=== PATIENT | female | born 1975 | race Hispanic/Latino ===

== ENCOUNTER 2024-12-22 13:44 | Inpatient (IN) | payer BC ==
[~2024-12-22] VITALS: Ht 157.5 cm; Wt 59.1 kg
[2024-12-22 14:21] LABS: ADD UA MICROSCOPIC YES; APPEARANCE,URINE HAZY (CLEAR); GLUCOSE, URINE (UA) NEGATIVE (NEGATIVE); LEUKOCYTE ESTERASE ,URINE 500 Leu/uL (NEGATIVE); NITRATE,URINE 2+ (NEGATIVE); OCCULT BLOOD,URINE NEGATIVE (NEGATIVE)
[2024-12-22 14:24] LABS: SQUAMOUS EPITHELIAL CELL,UR MANY /HPF (0-2)
[2024-12-22] MEDS: 0.9%NACL 1000ML 1,000 ML IV ONE (14:31)
[2024-12-22 14:45] LABS: IMMATURE GRANULOCYTE ABSOLUTE 0.01 K/uL (0-1); NUCLEATED RED BLOOD CELLS 0.0 % (0.0-0.19); PLATELET COUNT (AUTO) 215 K/uL (130-400); RED BLOOD CELL COUNT(AUTO) 3.63 MIL/uL (4.00-5.50); RED CELL DISTRIBUTION WIDTH 13.3 % (11.0-15.5); WHITE BLOOD COUNT (AUTO) 4.9 K/uL (4.8-10.8)
[2024-12-22 14:56] LABS: ASPARTATE AMINOTRANSFERASE 19.0 U/L (10-37); CREATININE 0.7 mg/dL (0.5-1.0); GLOMERULAR FILTR. RATE CALC 106.0 mL/min (>90); GLUCOSE,RANDOM 82.0 mg/dL (70-105); SODIUM SERUM 123.0 mmol/L (136-145); TOTAL PROTEIN, SERUM 7.0 g/dL (6.0-8.3); UREA NITROGEN, BLOOD 7.0 mg/dL (7-18)
--- NOTE | 2024-12-22 15:08 | HMCIMG ---
EXAM: CT Abdomen and Pelvis Without IV contrast CLINICAL HISTORY: left flank pain TECHNIQUE: Axial computed tomography images of the abdomen and pelvis without intravenous contrast. CONTRAST: No IV contrast. COMPARISON: None provided. FINDINGS: LUNG BASES: The lung bases appear clear. No pleural effusions are seen. LIVER: Unremarkable. GALLBLADDER AND BILE DUCTS: Distended gallbladder. No calcified gallstones. If indicated, further evaluation with ultrasound can be performed. PANCREAS: Unremarkable. SPLEEN: Unremarkable. ADRENAL GLANDS: Unremarkable. KIDNEYS, URETERS, AND BLADDER: No renal or ureteral stones. No hydronephrosis. STOMACH AND BOWEL: No bowel obstruction or inflammation. Large amount of stool in the colon, consistent with constipation. APPENDIX: Appendix not identified, but there are no findings to suggest appendicitis. PERITONEUM: No free fluid. No free air. LYMPH NODES: No lymphadenopathy is evident. REPRODUCTIVE: Unremarkable as visualized. VASCULATURE: No evidence of abdominal aortic aneurysm. BONES: No aggressive appearing osseous lesion. No acute osseous pathology evident. IMPRESSION: 1. Distended gallbladder. No calcified gallstones. If indicated, further evaluation with ultrasound can be performed. 2. No bowel obstruction or inflammation. Large amount of stool in the colon, consistent with constipation. 3. Appendix not identified, but there are no findings to suggest appendicitis. 4. No renal or ureteral stones. No hydronephrosis. /[place]
--- NOTE | 2024-12-22 17:03 | ERN ---
ED Note History of Present Illness Stated Complaint: BACK PAIN Chief Complaint: Flank Pain Time Seen by MD: 13:47 Dictation: 49-year-old female presenting to the emergency department with left-sided flank pain and pain with urination generalized weakness over the past few days no fever no chest pain but also reports generalized weakness Allergies: Coded Allergies: No Known Drug Allergies (Unverified Allergy, Unknown, 12/22/24) Past Medical History Past Medical History: No Pertinent History Surgical History: Review of System Dictation Constitutional: Negative for fever,chills, and weight loss Eyes: Negative for injury, pain,redness, and discharge ENT: Negative for injury,pain or swelling Cardiovascular: Negative for chest pain, palpitations, and edema Respiratory: Negative for shortness of breath, cough, and wheezing, Abdomen/GI: Negative for abdominal pain, nausea, vomiting, diarrhea, and constipation Back: Per HPI Skin: Negative for rash, and discoloration Neuro: Negative for headache, weakness, numbness, tingling, and seizure Psych: Negative for suicide ideation, homicidal ideation, and hallucinations Initial Vital Sign VS Vital Signs Date Time Temp Pulse Resp B/P (MAP) Pulse Ox O2 Delivery O2 Flow Rate FiO2 12/22/24 13:50 98.8 74 18 116/72 98 0 12/22/24 14:12 Room Air* 21 Physical Exam Dictation General: awake, alert, appears dehydrated Head/Face: Normocephalic, atraumatic Eyes: PERRL, EOMI, vision at baseline ENT: oral cavity clear, TMs clear, no signs of infection Neck: Trachea midline, supple, no nuchal rigidity Cardiovascular: RRR, normal S1/S2, No MRGs, no JVD Respiratory: CTAB, no respiratory distress, No rales or wheezes Abdomen: Soft, non-tender, non-distended, normal bowel sounds, no guarding or rebound. Skin: Warm, dry, normal turgor, no rash MS/Extremity: Pulses equal, no cyanosis, neurovascular intact, FROM Neuro: COAx4, GCS 15, strength 5/5, CN 2-12 intact, normal cerebellar exam, normal gait, Psych: Normal behavior, mood, and affect normal Results (Laboratory/Radiology) Laboratory/Radiology Laboratory Tests Test 12/22/24 14:00 12/22/24 14:18 Urine Color DARK-YELLOW (YELLOW) Urine Appearance HAZY (CLEAR) Urine pH 7.5 (5.0-8.0) Urine Specific [place] 1.010 (1.001-1.031) Urine Protein NEGATIVE mg/dL (NEGATIVE) Urine Glucose (UA) NEGATIVE mg/dL (NEGATIVE) Urine Ketones NEGATIVE mg/dL (NEGATIVE) Urine Occult Blood NEGATIVE (NEGATIVE) Urine Nitrate 2+ (NEGATIVE) H Urine Bilirubin 1 mg/dL (NEGATIVE) H Urine Urobilinogen 3 mg/dL (0.2-1.0) H Urine Leukocyte Esterase 500 Mae/uL (NEGATIVE) H Urine RBC 2-5 /HPF (0-1) H Urine WBC >100 /HPF (0-1) H Urine Squamous Epithelial Cells MANY /HPF (0-2) Urine Bacteria MOD /HPF (None Seen) Urine HCG, Qualitative NEGATIVE (NEGATIVE) White Blood Count 4.9 K/uL (4.8-10.8) Red Blood Count 3.63 MIL/uL (4.00-5.50) L Hemoglobin 10.7 g/dL (12.0-16.0) L Hematocrit 30.8 % (36-48) L Mean Corpuscular Volume 84.8 fL (79-99) Mean Corpuscular Hemoglobin 29.5 pg (27.0-33.0) Mean Corpuscular Hemoglobin Concent 34.7 g/dL (32.0-36.0) Red Cell Distribution Width 13.3 % (11.0-15.5) Platelet Count 215 K/uL (130-400) Mean Platelet Volume 11.3 fL (7.5-10.5) H Immature Granulocyte % (Auto) 0.2 % (0-1) Neutrophils (%) (Auto) 67.4 % (40.0-77.0) Lymphocytes (%) (Auto) 21.6 % (21.0-51.0) Monocytes (%) (Auto) 8.8 % (3.0-13.0) Eosinophils (%) (Auto) 1.4 % (0.0-8.0) Basophils (%) (Auto) 0.6 % (0.0-5.0) Neutrophils # (Auto) 3.3 K/uL (1.8-7.7) Lymphocytes # (Auto) 1.1 K/uL (1.0-4.8) Monocytes # (Auto) 0.4 K/uL (0.1-1.0) Eosinophils # (Auto) 0.07 K/uL (0.00-0.70) Basophils # (Auto) 0.03 K/uL (0.00-0.20) Absolute Immature Granulocyte (auto 0.01 K/uL (0-1) Nucleated Red Blood Cells 0.0 % (0.0-0.19) Sodium Level 123 mmol/L (136-145) L Potassium Level 4.1 mmol/L (3.5-5.1) Chloride Level 88 mmol/L (101-111) *L Carbon Dioxide Level 29 mmol/L (21-32) Blood Urea Nitrogen 7 mg/dL (7-18) Creatinine 0.7 mg/dL (0.5-1.0) Glomerular Filtration Rate Calc 106 mL/min (>90) Random Glucose 82 mg/dL (70-105) Total Calcium 8.5 mg/dL (8.5-10.1) Total Bilirubin 0.3 mg/dL (0.2-1.0) Direct Bilirubin 0.1 mg/dL (0.0-0.3) Aspartate Amino Transf (AST/SGOT) 19 U/L (10-37) Alanine Aminotransferase (ALT/SGPT) 21 U/L (12-78) Alkaline Phosphatase 119 U/L (50-136) Total Protein 7.0 g/dL (6.0-8.3) Albumin 3.8 g/dL (3.5-5.0) Labs Reviewed?: Yes ED Course ED Course Orders Procedure Category Date Status Time Urinalysis Profile LAB 12/22/24 Complete 13:57 Cbc With Differential LAB 12/22/24 Complete 14:11 Hepatic Function Panel LAB 12/22/24 Complete 14:11 Basic Metabolic Panel LAB 12/22/24 Complete 14:11 Ct Abd/Pel Wo Con CT 12/22/24 Resulted Renal/Appy 14:11 Ketorolac PHA 12/22/24 Complete Tromethamine 15mg/Ml 14:30 Ceftriaxone 2gm Vial PHA 12/22/24 Complete (Rocephin 2gm Inj) 14:30 0.9%Nacl 1000ml (Ns PHA 12/22/24 Complete 1000ml) 14:30 Culture Urine MICK 12/22/24 In Process 14:22 ,Urine Test LAB 12/22/24 Complete 14:25 Morphine 4mg Syg PHA 12/22/24 Complete (Morphine 4mg Syg) 16:30 Current Medications Medications (Trade) Dose Ordered Sig/[place] Route PRN Reason Start Time Stop Time Status Last Admin Dose Admin Ceftriaxone Sodium (Rocephin 2gm Inj) 2 gm ONCE ONCE IVPB 12/22/24 14:30 12/22/24 14:31 DC 12/22/24 14:31 Ketorolac Tromethamine (toRADol) 15 mg ONCE ONCE IV 12/22/24 14:30 12/22/24 14:31 DC 12/22/24 14:47 Morphine Sulfate (morPHINE 4MG SYG) 4 mg ONCE ONCE IVP 12/22/24 16:30 12/22/24 16:31 DC 12/22/24 16:31 Sodium Chloride 1,000 ml @ 0 mls/hr ONCE ONCE IV 12/22/24 14:30 12/22/24 14:31 DC 12/22/24 14:31 Vital Signs Date Time Temp Pulse Resp B/P (MAP) Pulse Ox O2 Delivery O2 Flow Rate FiO2 12/22/24 16:15 98.6 65 18 110/72 100 Room Air* 0 21 12/22/24 15:15 98.8 66 16 106/60 99 Room Air* 0 21 12/22/24 14:12 70 16 116/70 99 Room Air* 0 21 12/22/24 13:50 98.8 74 18 116/72 98 0 Medical Decision Making MDM MDM: Differential diagnosis: Rationale: Tests considered and ordered secondary to shared decision making include: labs, ECG and radiology Previous outside records reviewed: Old ER visits. Risk of complication and/or morbidity or mortality of patient management: None Medications-Per medication reconciliation Need for hospitalization: Patient does meet criteria for hospitalization. Need for emergency major/minor surgery: No There are no social concerns with this patient. Prescription drug management Prescriptions will include symptomatic care Patient's prior external medical records from other ER visits were reviewed by eileen torres as indicated. Prior testing and results from previous visits were reviewed. Prior tests were taken into account with medical decision making and resource utilization, independent historian/historians were used to obtain complete medical history. I independently interpreted the test that were performed, results were reviewed by me and considered findings on radiology if ordered. Medical management and examination interpretation discussions were had by me with other qualified healthcare professionals as indicated for the patient's care. 49-year-old female with left pyelo IV fluids and antibiotics given admitting for further care and evaluation DX & DISP Disposition: Inpatient Departure Impression: Primary Impression: Pyelonephritis Condition: Stable Referrals: JAKE BENAVIDEZ (PCP) GUILLE BURNETT MD Dec 22, 2024 17:03
[2024-12-22] MEDS: 0.9%NACL 1000ML 1,000 ML IV SCH (17:39)
[2024-12-22 17:47] LABS: INR 1.0 (0.85-1.15)
--- NOTE | 2024-12-22 18:00 | NUR ---
LEONORAR SCANNED PATIENT PER DR. RITCHIE ORDERS. PATIENT HAD >900 CC OF FLUID IN BLADDER. PATIENT WENT TO BATHROOM AND VOIDED AFTER VOIVED, BLADDER SCANNED PATIENT AND SHE HAD [address] GUERRERO AT BEDSIDE TO CONFIRM RESULTS.
--- NOTE | 2024-12-22 18:20 | HP ---
[facility] HISTORY AND PHYSICAL Date of Service: Dec 22, 2024 Time of Service: 18:20 HISTORY OF PRESENT ILLNESS: Date of service: 12/22/2024, patient was seen in [facility] This is a 49-year-old female with prior history of hyponatremia who presented to the ER for further evaluation of suprapubic, left flank and lower back pain radiating to the left leg. Symptoms have been ongoing for about a week. Antony cornelius states that she was lifting a heavy bed with mattress in at about a week ago and since then she has been having lower back pain. She states that she felt a pop when lifting the heavy bed. She has been having lower back pain radiating to the back which has been [id number] in intensity. She has been using topical Lidoderm patches for pain control. She has also noticed that she has been having suprapubic discomfort and urinary retention like symptoms for about a week with the back pain. Denies any weakness to the left leg or right lower extremity. She denies any numbness to the thighs or the groin area. She denies any urinary incontinence or fecal incontinence. Does report having had a UTI in May of this year which was treated with oral antibiotics. She denies constipation reports having had a bowel movement today. Pain in the lower back was severe in intensity in today prompting her to come to the ER for further evaluation. Presentation to the hospital, patient was noted to be afebrile with T-max of 98.8 F, heart rate of 74, blood pressure of 116/72. Labs on presentation showed WBC count of 4900, hemoglobin of 10.7, platelet count of 856353. Labs on presentation showed sodium of 123, potassium 4.1, chloride of 88, BUN of seven, creatinine of 0.7, normal liver function test. Urinalysis showed nitrite positive, leukocyte esterase positive, significant pyuria, bacteriuria as well. Patient underwent further evaluation with CT abdomen pelvis without IV contrast which showed findings of distended gallbladder, constipation but otherwise no significant abnormality. Patient denies significant right upper quadrant pain. For further management of acute on chronic hyponatremia, urinary tract infection. She will also undergo further neurologic evaluation for concerns for radicular pain, consultation with Neurology will be requested, MRI will be obtained to rule out disc herniation causing nerve root impingement. We will see how patient progresses in the next 48-72 hours. Sodium will be monitored closely and patient will be placed on fluid restrictions. Consultation with Nephrology will be requested. REVIEW OF SYSTEMS CONSTITUTIONAL: Denies fevers, chills, or night sweats. No unintentional weight loss reported. NEUROLOGICAL: Denies headache, amaurosis fugax, motor weakness, sensory deficit, vertigo/spinning sensation, gait abnormalities, or tremors. ENT: No hearing loss, otalgia, otorrhea, rhinitis, rhinorrhea, hoarseness, or sore throat. CARDIOVASCULAR: Denies any exertional angina, dyspnea on exertion, orthopnea, paroxysmal nocturnal dyspnea, palpitations, life-threatening arrhythmias, claudication. PULMONARY: Denies any shortness of breath, cough, phlegm/sputum, hemoptysis, pleuritic chest pain. SLEEP: Denies morning headaches, daytime somnolence or napping. Denies difficulty falling asleep, staying asleep, waking from sleep. Denies knowledge of snoring. GASTROINTESTINAL: Denies any type of dysphagia to either liquids or solids. Denies nausea, vomiting, pyrosis, early satiety, abdominal pain, diarrhea, constipation, or changes in stool consistency or caliber. Denies coffee-ground emesis, hematemesis, hematochezia, or melanotic stools. GENITOURINARY: Denies frequency, urgency, nocturia, hematuria or incontinence (Storage/Irritative symptoms.) Low urinary stream, straining to void, urinary intermittency or hesitancy, splitting of the voiding stream, terminal dribbling. ENDOCRINOLOGIC: Denies polyuria, polydipsia, polyphagia or heat/cold intolerances. HEMATOLOGIC: Denies thrombophilia/previous clots, or coagulopathy/bleeding disorders. ONCOLOGIC: Denies personal history of malignancy. DERMATOLOGIC: Denies rashes or pruritus. PSYCHIATRIC: Denies any suicidal or homicidal ideation. Denies hallucinations. PAST MEDICAL HISTORY: Was previously told she had hyponatremia on lab work done in ER for evaluation of chest pain about six months ago, history of UTI in May, PAST SURGICAL HISTORY: History of PAST SOCIAL HISTORY: Patient denies active smoking or alcohol consumption, patient is ambulatory at home and independent with ADLs and IADLs FAMILY HISTORY: Denies pertinent family history Allergies: No known drug allergies Medications: Patient denies taking regular outpatient home medications Coded Allergies: No Known Drug Allergies (Unverified Allergy, Unknown, 12/22/24) PHYSICAL EXAM GENERAL APPEARANCE: The patient is awake, alert, and oriented, in no acute cardiopulmonary distress. NEUROLOGICAL: Cranial nerves II-XII grossly intact. Motor is 5/5 in bilateral upper and lower extremities proximal to distal. No sensory deficits. HEENT: Face is symmetric. Pupils are equal and reactive. Extraocular movements are intact. NECK: Supple. No JVD. No thyromegaly. No submental, submandibular, pre-/post auricular, occipital or supraclavicular lymphadenopathy. CHEST: Normal chest expansion. No Telemetry. LUNGS: Absence of any rales, rhonchi or any wheezing. CARDIOVASCULAR: Regular. S1 and S2 normal. No appreciable rubs, murmurs or gallops. ABDOMEN: Soft, nontender, and nondistended. There is no rebound, voluntary guarding, or rigidity. : Deferred. No Gaming. EXTREMITIES: Non-edematous and not cyanotic. No clubbing. Good capillary refill. SKIN: No skin breakdown. Vital Sign (Last 24 Hours) 12/22/24 16:15 Temp 98.6 Pulse 65 Resp 18 B/P (MAP) 110/72 Pulse Ox 100 O2 Delivery Room Air* O2 Flow Rate 0 FiO2 21 LABS: Laboratory: Test 12/22/24 14:18 12/22/24 14:00 Range/Units White Blood Count 4.9 4.8-10.8 K/uL Red Blood Count 3.63 L 4.00-5.50 MIL/uL Hemoglobin 10.7 L 12.0-16.0 g/dL Hematocrit 30.8 L 36-48 % Mean Corpuscular Volume 84.8 79-99 fL Mean Corpuscular Hemoglobin 29.5 27.0-33.0 pg Mean Corpuscular Hemoglobin Concent 34.7 32.0-36.0 g/dL Red Cell Distribution Width 13.3 11.0-15.5 % Platelet Count 215 130-400 K/uL Mean Platelet Volume 11.3 H 7.5-10.5 fL Immature Granulocyte % (Auto) 0.2 0-1 % Neutrophils (%) (Auto) 67.4 40.0-77.0 % Lymphocytes (%) (Auto) 21.6 21.0-51.0 % Monocytes (%) (Auto) 8.8 3.0-13.0 % Eosinophils (%) (Auto) 1.4 0.0-8.0 % Basophils (%) (Auto) 0.6 0.0-5.0 % Neutrophils # (Auto) 3.3 1.8-7.7 K/uL Lymphocytes # (Auto) 1.1 1.0-4.8 K/uL Monocytes # (Auto) 0.4 0.1-1.0 K/uL Eosinophils # (Auto) 0.07 0.00-0.70 K/uL Basophils # (Auto) 0.03 0.00-0.20 K/uL Absolute Immature Granulocyte (auto 0.01 0-1 K/uL Nucleated Red Blood Cells 0.0 0.0-0.19 % Prothrombin Time 10.6 9.6-11.6 SEC Prothromb Time International Ratio 1.00 0.85-1.15 Activated Partial Thromboplast Time 30.7 26.3-35.5 SEC Sodium Level 123 L 136-145 mmol/L Potassium Level 4.1 3.5-5.1 mmol/L Chloride Level 88 *L 101-111 mmol/L Carbon Dioxide Level 29 21-32 mmol/L Blood Urea Nitrogen 7 7-18 mg/dL Creatinine 0.7 0.5-1.0 mg/dL Glomerular Filtration Rate Calc 106 >90 mL/min Random Glucose 82 70-105 mg/dL Total Calcium 8.5 8.5-10.1 mg/dL Total Bilirubin 0.3 0.2-1.0 mg/dL Direct Bilirubin 0.1 0.0-0.3 mg/dL Aspartate Amino Transf (AST/SGOT) 19 10-37 U/L Alanine Aminotransferase (ALT/SGPT) 21 12-78 U/L Alkaline Phosphatase 119 50-136 U/L C-Reactive Protein, Quantitative 15.40 H 0.5-3.0 mg/L Total Protein 7.0 6.0-8.3 g/dL Albumin 3.8 3.5-5.0 g/dL Procalcitonin < 0.05 L 0.05-0.5 ng/mL Thyroid Stimulating Hormone (TSH) 2.56 0.36-3.74 uIU/mL Urine Color DARK-YELLOW YELLOW Urine Appearance HAZY CLEAR Urine pH 7.5 5.0-8.0 Urine Specific [place] 1.010 1.001-1.031 Urine Protein NEGATIVE NEGATIVE mg/dL Urine Glucose (UA) NEGATIVE NEGATIVE mg/dL Urine Ketones NEGATIVE NEGATIVE mg/dL Urine Occult Blood NEGATIVE NEGATIVE Urine Nitrate 2+ H NEGATIVE Urine Bilirubin 1 H NEGATIVE mg/dL Urine Urobilinogen 3 H 0.2-1.0 mg/dL Urine Leukocyte Esterase 500 H NEGATIVE Mae/uL Urine RBC 2-5 H 0-1 /HPF Urine WBC >100 H 0-1 /HPF Urine Squamous Epithelial Cells MANY 0-2 /HPF Urine Bacteria MOD None Seen /HPF Urine HCG, Qualitative NEGATIVE NEGATIVE Current Medications Medications (Trade) Dose Ordered Sig/[place] Route PRN Reason Start Time Stop Time Status Last Admin Dose Admin Acetaminophen (TYLenol 325MG TAB) 650 mg Q6H PRN PO MILD PAIN (1-3) 12/22/24 17:30 01/21/25 17:29 Ceftriaxone Sodium (Rocephin 2gm Inj) 2 gm DAILY IVPB 12/23/24 09:00 01/02/25 08:59 Docusate Sodium (COLace 100MG CAP) 100 mg BID PO 12/22/24 21:00 01/21/25 20:59 Famotidine (Pepcid 20mg Tab) 20 mg BID PO 12/22/24 21:00 01/21/25 20:59 Ketorolac Tromethamine (toRADol) 15 mg Q12H PRN IM MODERATE PAIN (4-6) 12/22/24 18:00 12/22/24 17:43 DC Ketorolac Tromethamine (toRADol) 15 mg Q12H PRN IV MODERATE PAIN (4-6) 12/22/24 18:00 12/27/24 17:59 Morphine Sulfate (morPHINE 2MG SYG) 2 mg Q6H PRN IVP SEVERE PAIN (7-10) 12/22/24 18:00 12/29/24 17:59 Ondansetron HCl (zoFRAN 4MG INJ) 4 mg Q6H PRN IVP NAUSEA/VOMITING 12/22/24 17:30 01/21/25 17:29 Polyethylene Glycol (MIRalax 3350 17 GM POWD.PACK) 17 gm DAILY PO 12/23/24 09:00 01/22/25 08:59 Sodium Chloride 1,000 ml @ 70 mls/hr [id number] IV 12/22/24 17:30 01/21/25 17:29 12/22/24 17:39 70 MLS/HR Vitamin B Complex/ Vit C/Folic Acid (Nephrovite Tablet) 1 cap DAILY PO 12/23/24 09:00 01/22/25 08:59 DIAGNOSTICS / RADIOLOGY: SERVICE 1411 REASON: left flank pain ORDERING PHYSICIAN: GUILLE BURNETT MD PROCEDURE: ABD PELVWO - CT ABD/PEL WO CON RENAL/APPY EXAM: CT Abdomen and Pelvis Without IV contrast CLINICAL HISTORY: left flank pain TECHNIQUE: Axial computed tomography images of the abdomen and pelvis without intravenous contrast. CONTRAST: No IV contrast. COMPARISON: None provided. FINDINGS: LUNG BASES: The lung bases appear clear. No pleural effusions are seen. LIVER: Unremarkable. GALLBLADDER AND BILE DUCTS: Distended gallbladder. No calcified gallstones. If indicated, further evaluation with ultrasound can be performed. PANCREAS: Unremarkable. SPLEEN: Unremarkable. ADRENAL GLANDS: Unremarkable. KIDNEYS, URETERS, AND BLADDER: No renal or ureteral stones. No hydronephrosis. STOMACH AND BOWEL: No bowel obstruction or inflammation. Large amount of stool in the colon, consistent with constipation. APPENDIX: Appendix not identified, but there are no findings to suggest appendicitis. PERITONEUM: No free fluid. No free air. LYMPH NODES: No lymphadenopathy is evident. REPRODUCTIVE: Unremarkable as visualized. VASCULATURE: No evidence of abdominal aortic aneurysm. BONES: No aggressive appearing osseous lesion. No acute osseous pathology evident. IMPRESSION: 1. Distended gallbladder. No calcified gallstones. If indicated, further evaluation with ultrasound can be performed. 2. No bowel obstruction or inflammation. Large amount of stool in the colon, consistent with constipation. 3. Appendix not identified, but there are no findings to suggest appendicitis. 4. No renal or ureteral stones. No hydronephrosis. /[place] DICTATED BY: LIZETTE AGUIAR MD DATE: 12/22/241606 ELECTRONICALLY SIGNED BY: LIZETTE AGUIAR MD DATE: 12/22/241606 ASSESSMENT: Urinary tract infection with possible left-sided pyelonephritis, POA Acute on chronic hyponatremia, POA Subacute lower back pain with radicular features, POA Prior history of hyponatremia, POA PLAN: Patient will be admitted to medical-surgical floor under telemetry monitoring We will keep patient on fluid restrictions of 1.5 L daily, patient reports drinking about 3 L of fluid a day We will start patient on gentle hydration with normal saline at 70 mL/hour Further workup of hyponatremia we will be done, we will check serum osmolality, urine osmolality, we will check TSH, and cortisol with a.m. labs, patient may have a component of SIADH due to underlying chronic hyponatremia We will keep patient on IV Rocephin 2 g daily for management of UTI Consultation with Dr. Walsh with Nephrology will be requested We will have Neurology evaluate for further evaluation of lower back pain with radicular features, no significant urinary retention was noted on abdominal CT, bladder scan after voiding was noted to have 2 mL of urine in the bladder, we will obtain MRI of lumbar spine and thoracic spine for further evaluation of the back pain, we will rule out any disc herniation with nerve impingement, if any significant abnormality noted on MRI, will consider neurosurgery evaluation following MRI results, patient has been having no focal weakness of the bilateral lower extremity and denies any numbness or symptoms of saddle anesthesia We will recheck BMP later tonight to ensure sodium trend remains stable, All labs will be repeated in the morning, anticipate hospitalization for at least 48-72 hours, we will follow up urine cultures to deescalate antibiotics Pain control with IV Toradol for moderate pain and IV morphine for severe We will obtain RUQ US for further evaluation of distended gall bladder noted on abdominal CT Addendum: 0600, 12/23/2024: per nursing, patient has remote hx of seizures previously and is maintained on Carbamazepine as outpatient which can cause hyponatremia, hyponatremia is improving for now, so I will resume carbamazepine. Tele neuro is recommending MRI of the lumbar spine which has been ordered olga lidia maurice. They will be faxing over the consult note for further review. Plan of care was discussed with patient at bedside Date of service: 12/22/2024, Pranav Jiménez MD Advanced Care Planning: Which of the following were discussed: Hospice care: Yes __ No _X_ Therapeutic options: Yes _X_ No __ Advance directives: Yes _X_ No __ Other discussions: Discussed with who?: Patient Voluntary nature of this service was explained to the patient? Yes _x_ No __ Amount of time spent: 20 minutes PRANAV JIMÉNEZ MD Dec 22, 2024 18:20
[2024-12-22] MEDS: FAMOTIDINE 20MG TAB PO SCH (20:07)
[2024-12-22 20:20] LABS: CREATININE 0.6 mg/dL (0.5-1.0); GLOMERULAR FILTR. RATE CALC 110.0 mL/min (>90); GLUCOSE,RANDOM 130.0 mg/dL (70-105); SODIUM SERUM 128.0 mmol/L (136-145)
[2024-12-22 20:32] LABS: UREA NITROGEN, BLOOD 7.0 mg/dL (7-18)
--- NOTE | 2024-12-22 22:01 | NUR ---
ER TOBACCO CLOTH RECLAIMER NOTIFIED RN THAT [facility]" HAS ASSESSED THE PATIENT, AND DR CHAVEZ IS AWARE.
--- NOTE | 2024-12-22 22:14 | NUR ---
PT STATES THEY DO NOT TAKE ANY PRESCRIBED MEDICATIONS AT HOME.
[2024-12-22] MEDS ORDERED: CARB-225 PO (22:59)
[2024-12-22 23:00] VITALS: O2SAT 97
--- NOTE | 2024-12-22 23:00 | NUR ---
arrival report received from darline fisher. patient alert and oriented times 3. she arrived to room 430. she is ambulatory with assistance. she has no pain to left flank unless we touch it. home meds entered and thang brower made aware. patient is lying calmly in bed trying to sleep. call light within reach, bed alarm on, 2 side rails up. will continue to monitor patient.
--- NOTE | 2024-12-22 23:11 | NUR ---
[facility] CALL PLACED REQUESTING RESULTS OF TELE NEURO DONE LATE THIS AFTERNOON. FINANCIAL ASSISTANCE SPECIALIST STATES THAT THE RESULTS SHOULD BE FAXED WITHIN THE NEXT 20 MINUTES
--- NOTE | 2024-12-22 23:29 | NUR ---
home meds patient takes carbamazepine at home for seizures. i called thang brower. she is aware. no new orders given.
[2024-12-23] VITALS (8 sets, daily range): BP systolic 107–133; BP diastolic 62–83; PULSE 64–74; RESP 17–18; TEMP 97.6–98.2; O2SAT 99–100
--- NOTE | 2024-12-23 01:28 | NUR ---
OCTAVIANO CLEMENTS UNABLE TO LOCATE RESULTS ON EITHER THE FAX MACHINE POD 4A OR THE FAX MACHINE IN ER. 2ND ATTEMPT TO CONTACT THEM FOR TELE NEURO RESULTS. THE RECORDED RESPONSE, '"OCTAVIANO CLEMENTS CANNOT COME TO THE PHONE. PLEASE HANG UP AND TRY AGAIN."
[2024-12-23 01:47] LABS: CREATININE,URINE RANDOM 17.52 mg/dL (30-135)
--- NOTE | 2024-12-23 02:25 | CONS ---
NEPHROLOGY CONSULTATION REASON FOR CONSULTATION: Severe hyponatremia. HISTORY OF PRESENT ILLNESS: This lady has multiple medical problems. The patient came with left flank pain, pain to the left leg. The patient has also low-grade fever. The patient is found to have a low sodium of 123. She has been found to have some pyuria, bacteria and being treated for UTI. This patient has been drinking a large amount of liquids. No other associated findings. No other aggravating or relieving factors. PAST MEDICAL HISTORY: Possible hyponatremia, previous UTIs. PAST SURGICAL HISTORY: . SOCIAL HISTORY: No alcohol or drug abuse. No smoking. FAMILY HISTORY: Not pertinent. ALLERGIES: None. REVIEW OF SYSTEMS: CONSTITUTIONAL: No fevers, chills or rigors. HEENT: With no headache. No oral ulcers, sore throat or difficulty swallowing. RESPIRATORY: With no cough, expectoration, hemoptysis or pleuritic pain. CARDIOVASCULAR: No orthopnea or PND. GASTROINTESTINAL: Negative for nausea, vomiting or diarrhea reported. GENITOURINARY: Negative for dysuria or hematuria. No previous stone. MUSCULOSKELETAL: With no joint swelling, redness, inflammation in any joint. DERMATOLOGIC: No rashes, pruritus or skin lesions. ENDOCRINE: No polyuria, polydipsia or polyphagia. PSYCHIATRIC: Review is negative for anxiety, depression or hallucination. NEUROLOGIC: No seizure or syncope. LYMPHATIC AND HEMATOPOIETIC: No bleeding tendencies or swelling noted in lymph node areas. The other systemic review is unchanged from the past. PHYSICAL EXAMINATION: GENERAL: Pale, sick, anxious looking, alert and oriented. VITAL SIGNS: Blood pressure is 110/70, pulse is 65 and respiratory rate is 18. HEENT: Head is atraumatic. Pupils are round and reactive. Sclerae are anicteric. Conjunctivae not pale. Oral mucosa is not dry. NECK: Supple. No masses or bruits. Thyroid is palpable. Neck has no bruit. CHEST: Shows equal thoracic percussion note being resonant in all areas. CARDIAC: Regular rhythm. No rubs. No S3, S4. No parasternal heave. ABDOMEN: No guarding or tenderness. Bowel sounds are normoactive. No free fluid. EXTREMITIES: With no edema and no cyanosis or clubbing. BACK: No tenderness or back deformities. SKIN: No other petechial rashes on inspection or palpation. LYMPHATIC: No lymph node swelling in neck or axillary area. NEUROLOGIC: Awake, alert, nonfocal. No cranial nerve palsies. No motor or sensory deficits. LABORATORY DATA: Labs have been reviewed. Hemoglobin 10.7, hematocrit 30.8. The patient has low sodium of 123. Other electrolytes are reviewed. TSH was reported at 2.56. Urinalysis showed some nitrite positivity and wbc's. Old records have been reviewed. C-reactive protein was elevated. IMAGING STUDIES: Personally reviewed. Abdominal and pelvic CT has been done and has shown distended gallbladder. No calcified stone. No bowel obstruction. Appendix not identified. No stones. No hydronephrosis. Old records have been reviewed in detail. Other labs have been reviewed. I have reviewed the labs, x-ray and imaging studies personally. PROBLEMS: * Hyponatremia in a patient who is admitted with UTI. * Back pain. * Anemia. * Underlying multiple other comorbidities. * The patient may have excessive fluid intake. PLAN: My suggestions would be: * The patient will need further workup. * Labs, x-ray and imaging studies personally reviewed. * Urine electrolytes and urine osmolality. * Serum osmolality. * The patient will get uric acid and TSH. * If needed cortisol level. * No need for hypertonic saline. * Free water restriction. * Avoid nonsteroidal drugs. * Pain relief can be done with IV Dilaudid in low dose 0.25-0.5 q.6h. * Coverage for UTI is being done. * Iron studies, ferritin. * I have discussed with Dr. Jiménez. * Old records and previous records have been reviewed in detail. I will continue to monitor and follow closely. Condition remains guarded. Seen several times. I thank you for this patient. TID: [id number] RECEIPT: [id number] [facility]
[2024-12-23 03:49] LABS: IMMATURE GRANULOCYTE ABSOLUTE 0.02 K/uL (0-1); NUCLEATED RED BLOOD CELLS 0.0 % (0.0-0.19); PLATELET COUNT (AUTO) 210 K/uL (130-400); RED BLOOD CELL COUNT(AUTO) 3.45 MIL/uL (4.00-5.50); RED CELL DISTRIBUTION WIDTH 13.6 % (11.0-15.5); WHITE BLOOD COUNT (AUTO) 5.9 K/uL (4.8-10.8)
[2024-12-23 04:20] LABS: ASPARTATE AMINOTRANSFERASE 18.0 U/L (10-37); CREATININE 0.5 mg/dL (0.5-1.0); GLOMERULAR FILTR. RATE CALC 115.0 mL/min (>90); GLUCOSE,RANDOM 107.0 mg/dL (70-105); SODIUM SERUM 129.0 mmol/L (136-145); TOTAL PROTEIN, SERUM 6.4 g/dL (6.0-8.3); UREA NITROGEN, BLOOD 7.0 mg/dL (7-18)
--- NOTE | 2024-12-23 05:04 | NUR ---
[facility] CALL PLACED TO INQUIRE ABOUT RESULTS. [employer]IST FAX NUMBER GIVEN AND JIG MAKER STATES, "IT SHOULD BE COMING OUT RIGHT NOW."
--- NOTE | 2024-12-23 05:27 | NUR ---
[facility] REPORT RECEIVED IN [facility]FORMANCE CONSULTANT FAX. RE-FAXED TO [address] IN PATIENT'S CHART. NURSE NOTIFIED.
--- NOTE | 2024-12-23 07:10 | HMCIMG ---
EXAMINATION: ULTRASOUND OF THE ABDOMEN (LIMITED) WITH COLOR DOPPLER. CLINICAL HISTORY: To rule out cholelithiasis and cholecystitis. COMPARISON: CT abdomen and pelvis without contrast from the same day. TECHNIQUE: Real-time grayscale ultrasound images of the abdomen. In addition, color Doppler is medically necessary to perform in order to evaluate vascularity and blood flow. FINDINGS: Liver: Normal in caliber, the right hepatic lobe measures 14.3 cm in the craniocaudal dimension. There is increased echogenicity of the hepatic parenchyma. There is no focal hepatic abnormality or intrahepatic biliary ductal dilatation. There is normal spectral Doppler of the main portal vein. Gallbladder: Distended and measures 10.2 x 4.8 cm. There is normal wall thickness (0.2 cm). No hyperemia or pericholecystic free fluid. There are multiple calculi largest measure 1.9 cm. Common bile duct is normal in caliber, measuring 0.6 cm. Pancreas: Head and body appear normal in caliber and echotexture. No calcification or dilated pancreatic duct. Tail is obscured by overlying bowel gas. The right kidney is normal in caliber, the right kidney measures 10.0 x 3.8 x 4.5 cm in craniocaudal, AP, and transverse dimensions respectively. There is normal renal cortical thickness, and cortical echogenicity. There is no renal calculus. There is no right hydronephrosis. IMPRESSION: Hepatic steatosis. Distended gallbladder with gallstones.No pericholecystic fluid or gallbladder wall thickening. /Margarita
[2024-12-23] MEDS: Vitamin B Complex/Vit C/Folic Acid PO SCH (08:41)
--- NOTE | 2024-12-23 09:11 | NUR ---
HOME MEDICATIONS PATIENT STATED TAKING CARBAMAZEPINA FROM [place] AND DOES NOT WANT TO TAKE MEDICATION FROM HERE STATING MAKES HER FEEL "WEIRD". PATIENT ALSO REPORTS TAKES 1 1/2 PILLS OF CARBAMAZEPINA BID NOT 1 TAB INDICATED IN [facility]. CHANGES MADE TO [facility] AND NOTIFIED PRIMARY. PILL BOTTLE TAKEN TO PHARMACY FOR LABELING, PER JASIEL PHARMACIST, PATIENT CAN TAKE OWN SUPPLY. WILL CONTINUE TO MONITOR.
--- NOTE | 2024-12-23 12:14 | PN ---
[facility] PROGRESS NOTE Date of Service: Dec 23, 2024 Time of Service: 12:09 SUBJECTIVE: Follow up visit for 49-year-old female admitted to the hospital for acute low back pain, acute UTI, hyponatremia. Patient remains on IV Rocephin, cultures in process. MRI of T and L-spine has been requested. REVIEW OF SYSTEMS CONSTITUTIONAL: Denies fevers, chills, or night sweats. No unintentional weight loss reported. NEUROLOGICAL: Denies headache, amaurosis fugax, motor weakness, sensory deficit, vertigo/spinning sensation, gait abnormalities, or tremors. ENT: No hearing loss, otalgia, otorrhea, rhinitis, rhinorrhea, hoarseness, or sore throat. CARDIOVASCULAR: Denies any exertional angina, dyspnea on exertion, orthopnea, paroxysmal nocturnal dyspnea, palpitations, life-threatening arrhythmias, claudication. PULMONARY: Denies any shortness of breath, cough, phlegm/sputum, hemoptysis, pleuritic chest pain. SLEEP: Denies morning headaches, daytime somnolence or napping. Denies di fficulty falling asleep, staying asleep, waking from sleep. Denies knowledge of snoring. GASTROINTESTINAL: Denies any type of dysphagia to either liquids or solids. Denies nausea, vomiting, pyrosis, early satiety, abdominal pain, diarrhea, constipation, or changes in stool consistency or caliber. Denies coffee-ground emesis, hematemesis, hematochezia, or melanotic stools. GENITOURINARY: Denies frequency, urgency, nocturia, hematuria or incontinence (Storage/Irritative symptoms.) Low urinary stream, straining to void, urinary intermittency or hesitancy, splitting of the voiding stream, terminal dribbling. ENDOCRINOLOGIC: Denies polyuria, polydipsia, polyphagia or heat/cold intolerances. HEMATOLOGIC: Denies thrombophilia/previous clots, or coagulopathy/bleeding disorders. ONCOLOGIC: Denies personal history of malignancy. DERMATOLOGIC: Denies rashes or pruritus. PSYCHIATRIC: Denies any suicidal or homicidal ideation. Denies hallucinations. PHYSICAL EXAM GENERAL APPEARANCE: The patient is awake, alert, and oriented, in no acute cardiopulmonary distress. NEUROLOGICAL: Cranial nerves II-XII grossly intact. Motor is 5/5 in bilateral upper and lower extremities proximal to distal. No sensory deficits. HEENT: Face is symmetric. Pupils are equal and reactive. Extraocular movements are intact. NECK: Supple. No JVD. No thyromegaly. No submental, submandibular, pre- /postauricular, occipital or supraclavicular lymphadenopathy. CHEST: Normal chest expansion. No Telemetry. LUNGS: Absence of any rales, rhonchi or any wheezing. CARDIOVASCULAR: Regular. S1 and S2 normal. No appreciable rubs, murmurs or gallops. ABDOMEN: Soft, nontender, and nondistended. There is no rebound, voluntary guarding, or rigidity. : Deferred. No Gaming. EXTREMITIES: Non-edematous and not cyanotic. No clubbing. Good capillary refill. SKIN: No skin breakdown. Vital Signs (last 8hr) Date Time Temp Pulse Resp B/P (MAP) Pulse Ox O2 Delivery O2 Flow Rate FiO2 12/23/24 11:37 97.9 71 18 107/69 99 Room Air 12/23/24 10:39 99 Room Air* 0 21 12/23/24 07:48 98.1 68 18 116/63 99 Room Air LABS: Laboratory: Test 12/23/24 03:26 12/23/24 01:35 12/22/24 14:18 12/22/24 14:00 Range/Units White Blood Count 5.9 4.8-10.8 K/uL Red Blood Count 3.45 L 4.00-5.50 MIL/uL Hemoglobin 10.2 L 12.0-16.0 g/dL Hematocrit 29.0 L 36-48 % Mean Corpuscular Volume 84.1 79-99 fL Mean Corpuscular Hemoglobin 29.6 27.0-33.0 pg Mean Corpuscular Hemoglobin Concent 35.2 32.0-36.0 g/dL Red Cell Distribution Width 13.6 11.0-15.5 % Platelet Count 210 130-400 K/uL Mean Platelet Volume 11.4 H 7.5-10.5 fL Immature Granulocyte % (Auto) 0.3 0-1 % Neutrophils (%) (Auto) 63.3 40.0-77.0 % Lymphocytes (%) (Auto) 25.8 21.0-51.0 % Monocytes (%) (Auto) 8.0 3.0-13.0 % Eosinophils (%) (Auto) 2.1 0.0-8.0 % Basophils (%) (Auto) 0.5 0.0-5.0 % Neutrophils # (Auto) 3.7 1.8-7.7 K/uL Lymphocytes # (Auto) 1.5 1.0-4.8 K/uL Monocytes # (Auto) 0.5 0.1-1.0 K/uL Eosinophils # (Auto) 0.12 0.00-0.70 K/uL Basophils # (Auto) 0.03 0.00-0.20 K/uL Absolute Immature Granulocyte (auto 0.02 0-1 K/uL Nucleated Red Blood Cells 0.0 0.0-0.19 % Sodium Level 129 L 136-145 mmol/L Potassium Level 4.3 3.5-5.1 mmol/L Chloride Level 97 L 101-111 mmol/L Carbon Dioxide Level 27 21-32 mmol/L Blood Urea Nitrogen 7 7-18 mg/dL Creatinine 0.5 0.5-1.0 mg/dL Glomerular Filtration Rate Calc 115 >90 mL/min Random Glucose 107 H 70-105 mg/dL Uric Acid 2.1 L 2.6-7.2 mg/dL Total Calcium 8.3 L 8.5-10.1 mg/dL Magnesium Level 2.00 1.80-2.40 mg/dL Total Bilirubin 0.1 #L 0.2-1.0 mg/dL Aspartate Amino Transf (AST/SGOT) 18 10-37 U/L Alanine Aminotransferase (ALT/SGPT) 22 12-78 U/L Alkaline Phosphatase 113 50-136 U/L Total Protein 6.4 6.0-8.3 g/dL Albumin 3.3 L 3.5-5.0 g/dL Urine Random Creatinine 17.52 L 30-135 mg/dL Urine Random Sodium 93 40-220 mmol/l Urine Random Potassium < 9 L 25-125 mmol/L Urine Random Chloride 98 L 110-250 mmol/L Prothrombin Time 10.6 9.6-11.6 SEC Prothromb Time International Ratio 1.00 0.85-1.15 Activated Partial Thromboplast Time 30.7 26.3-35.5 SEC Direct Bilirubin 0.1 0.0-0.3 mg/dL C-Reactive Protein, Quantitative 15.40 H 0.5-3.0 mg/L Procalcitonin < 0.05 L 0.05-0.5 ng/mL Thyroid Stimulating Hormone (TSH) 2.56 0.36-3.74 uIU/mL Urine Color DARK-YELLOW YELLOW Urine Appearance HAZY CLEAR Urine pH 7.5 5.0-8.0 Urine Specific [place] 1.010 1.001-1.031 Urine Protein NEGATIVE NEGATIVE mg/dL Urine Glucose (UA) NEGATIVE NEGATIVE mg/dL Urine Ketones NEGATIVE NEGATIVE mg/dL Urine Occult Blood NEGATIVE NEGATIVE Urine Nitrate 2+ H NEGATIVE Urine Bilirubin 1 H NEGATIVE mg/dL Urine Urobilinogen 3 H 0.2-1.0 mg/dL Urine Leukocyte Esterase 500 H NEGATIVE Mae/uL Urine RBC 2-5 H 0-1 /HPF Urine WBC >100 H 0-1 /HPF Urine Squamous Epithelial Cells MANY 0-2 /HPF Urine Bacteria MOD None Seen /HPF Urine HCG, Qualitative NEGATIVE NEGATIVE Current Medications Medications (Trade) Dose Ordered Sig/[place] Route PRN Reason Start Time Stop Time Status Last Admin Dose Admin Acetaminophen (TYLenol 325MG TAB) 650 mg Q6H PRN PO MILD PAIN (1-3) 12/22/24 17:30 01/21/25 17:29 Carbamazepine (carBAMazepine 200 mg tablet) 200 mg BID PO 12/23/24 09:00 01/22/25 08:59 Ceftriaxone Sodium (Rocephin 2gm Inj) 2 gm DAILY IVPB 12/23/24 09:00 01/02/25 08:59 12/23/24 08:41 2 GM Docusate Sodium (COLace 100MG CAP) 100 mg BID PO 12/22/24 21:00 01/21/25 20:59 12/23/24 08:41 100 MG Famotidine (Pepcid 20mg Tab) 20 mg BID PO 12/22/24 21:00 01/21/25 20:59 12/23/24 08:41 20 MG Ketorolac Tromethamine (toRADol) 15 mg Q12H PRN IM MODERATE PAIN (4-6) 12/22/24 18:00 12/22/24 17:43 DC Ketorolac Tromethamine (toRADol) 15 mg Q12H PRN IV MODERATE PAIN (4-6) 12/22/24 18:00 12/27/24 17:59 Morphine Sulfate (morPHINE 2MG SYG) 2 mg Q6H PRN IVP SEVERE PAIN (7-10) 12/22/24 18:00 12/29/24 17:59 12/22/24 18:53 2 MG Ondansetron HCl (zoFRAN 4MG INJ) 4 mg Q6H PRN IVP NAUSEA/VOMITING 12/22/24 17:30 01/21/25 17:29 12/22/24 18:52 4 MG Polyethylene Glycol (MIRalax 3350 17 GM POWD.PACK) 17 gm DAILY PO 12/23/24 09:00 01/22/25 08:59 12/23/24 08:41 17 GM Sodium Chloride 1,000 ml @ 70 mls/hr [id number] IV 12/22/24 17:30 01/21/25 17:29 12/23/24 07:09 70 MLS/HR Vitamin B Complex/ Vit C/Folic Acid (Nephrovite Tablet) 1 cap DAILY PO 12/23/24 09:00 01/22/25 08:59 12/23/24 08:41 1 CAP DIAGNOSTICS / RADIOLOGY: [ ] ASSESSMENT: Urinary tract infection with possible left-sided pyelonephritis, POA Acute on chronic hyponatremia, POA Subacute lower back pain with radicular features, POA Prior history of hyponatremia, POA PLAN: Continue admission to medical-surgical floor under telemetry monitoring We will keep patient on fluid restrictions of 1.5 L daily Continue on gentle hydration with normal saline at 70 mL/hour Further workup of hyponatremia we will be done We will keep patient on IV Rocephin 2 g daily for management of UTI; follow up with cultures Consultation with Dr. Walsh with Nephrology will be requested will consider neurosurgery evaluation following MRI results, patient has been a focal weakness of the lower extremity and denies any numbness or symptoms of saddle anesthesia Pain control with IV Toradol for moderate pain and IV morphine for severe RUQ US shows fatty liver, with distended gallbladder, no gallstones no pericholecystic fluid or gallbladder wall thickening. PRN medications for fever, pain, nausea, constipation Follow up a.m. labs Further orders per hospital course FAUZIA CHOW Dec 23, 2024 12:14
--- NOTE | 2024-12-23 13:16 | PN ---
NEPHROLOGY PROGRESS NOTE Date/Time Patient Seen: Dec 23, 2024 SUBJECTIVE: This is a 49-year-old female with prior history of hyponatremia She presented to the ER for further evaluation of suprapubic, left flank and lower back pain radiating to the left leg. The patient came with left flank pain, pain to the left leg. The patient has also low-grade fever. The patient is found to have a low sodium of 123. She has been found to have some pyuria, bacteria and being treated for UTI. This patient has been drinking a large amount of liquids. No other associated findings. No other aggravating or relieving factors. Hyponatremia is improving Pending cortisol level. She was seen in the medical floor, in no acute distress REVIEW OF SYSTEMS: GENERAL: Negative for any nausea, vomiting, fevers, chills, or weight loss. NEUROLOGIC: Negative for any blurry vision, blind spots, double vision, facial asymmetry, dysphagia, dysarthria, hemiparesis, hemisensory deficits, vertigo, ataxia. HEENT: Negative for any head trauma, neck trauma, neck stiffness, photophobia, phonophobia, sinusitis, rhinitis. CARDIAC: Negative for any chest pain, dyspnea on exertion, paroxysmal nocturnal dyspnea, peripheral edema. PULMONARY: Negative for any shortness of breath, wheezing, COPD, or TB exposure. GASTROINTESTINAL: Negative for any abdominal pain, nausea, vomiting, bright red blood per rectum, melena. GENITOURINARY: Negative for any dysuria, hematuria, incontinence. INTEGUMENTARY: Negative for any rashes, cuts, insect bites. RHEUMATOLOGIC: Negative for any joint pains, photosensitive rashes, history of vasculitis or kidney problems. HEMATOLOGIC: Negative for any abnormal bruising, frequent infections or bleeding. Vital Signs (last 8hr) Date Time Temp Pulse Resp B/P (MAP) Pulse Ox O2 Delivery O2 Flow Rate FiO2 12/23/24 11:37 97.9 71 18 107/69 99 Room Air 12/23/24 10:39 99 Room Air* 0 21 12/23/24 07:48 98.1 68 18 116/63 99 Room Air PHYSICAL EXAM: GENERAL: Alert and oriented x 3. No acute distress. Well-nourished. EYES: EOMI. Anicteric. HENT: Moist mucous membranes. No scleral icterus. No cervical lymphadenopathy. LUNGS: Clear to auscultation bilaterally. No accessory muscle use. CARDIOVASCULAR: Regular rate and rhythm. No murmur. No JVD. ABDOMEN: Soft, non-tender and non-distended. No palpable masses. EXTREMITIES: No edema. Non-tender. SKIN: No rashes or lesions. Warm. NEUROLOGIC: No focal neurological deficits. CN II-XII grossly intact, but not individually tested. PSYCHIATRIC: Cooperative. Appropriate mood and affect. Current Medications Medications (Trade) Dose Ordered Sig/[place] Route PRN Reason Start Time Stop Time Status Last Admin Dose Admin Acetaminophen (TYLenol 325MG TAB) 650 mg Q6H PRN PO MILD PAIN (1-3) 12/22/24 17:30 01/21/25 17:29 Carbamazepine (carBAMazepine 200 mg tablet) 200 mg BID PO 12/23/24 09:00 01/22/25 08:59 Ceftriaxone Sodium (Rocephin 2gm Inj) 2 gm DAILY IVPB 12/23/24 09:00 01/02/25 08:59 12/23/24 08:41 2 GM Docusate Sodium (COLace 100MG CAP) 100 mg BID PO 12/22/24 21:00 01/21/25 20:59 12/23/24 08:41 100 MG Famotidine (Pepcid 20mg Tab) 20 mg BID PO 12/22/24 21:00 01/21/25 20:59 12/23/24 08:41 20 MG Ketorolac Tromethamine (toRADol) 15 mg Q12H PRN IM MODERATE PAIN (4-6) 12/22/24 18:00 12/22/24 17:43 DC Ketorolac Tromethamine (toRADol) 15 mg Q12H PRN IV MODERATE PAIN (4-6) 12/22/24 18:00 12/27/24 17:59 Morphine Sulfate (morPHINE 2MG SYG) 2 mg Q6H PRN IVP SEVERE PAIN (7-10) 12/22/24 18:00 12/29/24 17:59 12/22/24 18:53 2 MG Ondansetron HCl (zoFRAN 4MG INJ) 4 mg Q6H PRN IVP NAUSEA/VOMITING 12/22/24 17:30 01/21/25 17:29 12/22/24 18:52 4 MG Polyethylene Glycol (MIRalax 3350 17 GM POWD.PACK) 17 gm DAILY PO 12/23/24 09:00 01/22/25 08:59 12/23/24 08:41 17 GM Sodium Chloride 1,000 ml @ 70 mls/hr [id number] IV 12/22/24 17:30 01/21/25 17:29 12/23/24 07:09 70 MLS/HR Vitamin B Complex/ Vit C/Folic Acid (Nephrovite Tablet) 1 cap DAILY PO 12/23/24 09:00 01/22/25 08:59 12/23/24 08:41 1 CAP LABORATORY: [ ] Hematology Labs: Test 12/23/24 03:26 Range/Units White Blood Count 5.9 4.8-10.8 K/uL Red Blood Count 3.45 L 4.00-5.50 MIL/uL Hemoglobin 10.2 L 12.0-16.0 g/dL Hematocrit 29.0 L 36-48 % Mean Corpuscular Volume 84.1 79-99 fL Mean Corpuscular Hemoglobin 29.6 27.0-33.0 pg Mean Corpuscular Hemoglobin Concent 35.2 32.0-36.0 g/dL Red Cell Distribution Width 13.6 11.0-15.5 % Platelet Count 210 130-400 K/uL Mean Platelet Volume 11.4 H 7.5-10.5 fL Immature Granulocyte % (Auto) 0.3 0-1 % Neutrophils (%) (Auto) 63.3 40.0-77.0 % Lymphocytes (%) (Auto) 25.8 21.0-51.0 % Monocytes (%) (Auto) 8.0 3.0-13.0 % Eosinophils (%) (Auto) 2.1 0.0-8.0 % Basophils (%) (Auto) 0.5 0.0-5.0 % Neutrophils # (Auto) 3.7 1.8-7.7 K/uL Lymphocytes # (Auto) 1.5 1.0-4.8 K/uL Monocytes # (Auto) 0.5 0.1-1.0 K/uL Eosinophils # (Auto) 0.12 0.00-0.70 K/uL Basophils # (Auto) 0.03 0.00-0.20 K/uL Absolute Immature Granulocyte (auto 0.02 0-1 K/uL Nucleated Red Blood Cells 0.0 0.0-0.19 % Chemistry Labs: Test 12/23/24 03:26 12/22/24 14:18 Range/Units Sodium Level 129 L 136-145 mmol/L Potassium Level 4.3 3.5-5.1 mmol/L Chloride Level 97 L 101-111 mmol/L Carbon Dioxide Level 27 21-32 mmol/L Blood Urea Nitrogen 7 7-18 mg/dL Creatinine 0.5 0.5-1.0 mg/dL Glomerular Filtration Rate Calc 115 >90 mL/min Random Glucose 107 H 70-105 mg/dL Uric Acid 2.1 L 2.6-7.2 mg/dL Total Calcium 8.3 L 8.5-10.1 mg/dL Magnesium Level 2.00 1.80-2.40 mg/dL Total Bilirubin 0.1 #L 0.2-1.0 mg/dL Aspartate Amino Transf (AST/SGOT) 18 10-37 U/L Alanine Aminotransferase (ALT/SGPT) 22 12-78 U/L Alkaline Phosphatase 113 50-136 U/L Total Protein 6.4 6.0-8.3 g/dL Albumin 3.3 L 3.5-5.0 g/dL Serum Osmolality 252 L 278-305 mOsm/kg Direct Bilirubin 0.1 0.0-0.3 mg/dL C-Reactive Protein, Quantitative 15.40 H 0.5-3.0 mg/L Procalcitonin < 0.05 L 0.05-0.5 ng/mL Thyroid Stimulating Hormone (TSH) 2.56 0.36-3.74 uIU/mL Coagulation Labs: Test 12/22/24 14:18 Range/Units Prothrombin Time 10.6 9.6-11.6 SEC Prothromb Time International Ratio 1.00 0.85-1.15 Activated Partial Thromboplast Time 30.7 26.3-35.5 SEC DIAGNOSTICS / RADIOLOGY: [address] [address] IMAGING REPORT Signed PATIENT: ARON MARTINEZ MR#: [id number] : 1975 SEX: F AGE: 49 LOCATION: [facility] ORDER [id number] STATUS: ADM IN REPORT#: [id number] SERVICE 1738 REASON: R/O ANY CHOLELITHIASIS, R/O ANY CHANGES OF CHOLECYSTITIS ORDERING PHYSICIAN: ANABEL CHAVEZ MD PROCEDURE: ABDRUQLTD - US ABDOMINAL RUQ\LTD EXAMINATION: ULTRASOUND OF THE ABDOMEN (LIMITED) WITH COLOR DOPPLER. CLINICAL HISTORY: To rule out cholelithiasis and cholecystitis. COMPARISON: CT abdomen and pelvis without contrast from the same day. TECHNIQUE: Real-time grayscale ultrasound images of the abdomen. In addition, color Doppler is medically necessary to perform in order to evaluate vascularity and blood flow. FINDINGS: Liver: Normal in caliber, the right hepatic lobe measures 14.3 cm in the craniocaudal dimension. There is increased echogenicity of the hepatic parenchyma. There is no focal hepatic abnormality or intrahepatic biliary ductal dilatation. There is normal spectral Doppler of the main portal vein. Gallbladder: Distended and measures 10.2 x 4.8 cm. There is normal wall thickness (0.2 cm). No hyperemia or pericholecystic free fluid. There are multiple calculi largest measure 1.9 cm. Common bile duct is normal in caliber, measuring 0.6 cm. Pancreas: Head and body appear normal in caliber and echotexture. No calcification or dilated pancreatic duct. Tail is obscured by overlying bowel gas. The right kidney is normal in caliber, the right kidney measures 10.0 x 3.8 x 4.5 cm in craniocaudal, AP, and transverse dimensions respectively. There is normal renal cortical thickness, and cortical echogenicity. There is no renal calculus. There is no right hydronephrosis. IMPRESSION: Hepatic steatosis. Distended gallbladder with gallstones.No pericholecystic fluid or gallbladder wall thickening. /Joiner DICTATED BY: LIZETTE AGUIAR MD DATE: 12/23/24808 ELECTRONICALLY SIGNED BY: LIZETTE AGUIAR MD DATE: 12/23/24808 PATIENT: ARON MARTINEZ MR#: [id number] : 1975 SEX: F AGE: 49 LOCATION: [facility] ORDER 11 STATUS: REG ER REPORT#: [id number] SERVICE 10 REASON: left flank pain ORDERING PHYSICIAN: GUILLE BURNETT MD PROCEDURE: ABD PELVWO - CT ABD/PEL WO CON RENAL/APPY EXAM: CT Abdomen and Pelvis Without IV contrast CLINICAL HISTORY: left flank pain TECHNIQUE: Axial computed tomography images of the abdomen and pelvis without intravenous contrast. CONTRAST: No IV contrast. COMPARISON: None provided. FINDINGS: LUNG BASES: The lung bases appear clear. No pleural effusions are seen. LIVER: Unremarkable. GALLBLADDER AND BILE DUCTS: Distended gallbladder. No calcified gallstones. If indicated, further evaluation with ultrasound can be performed. PANCREAS: Unremarkable. SPLEEN: Unremarkable. ADRENAL GLANDS: Unremarkable. KIDNEYS, URETERS, AND BLADDER: No renal or ureteral stones. No hydronephrosis. STOMACH AND BOWEL: No bowel obstruction or inflammation. Large amount of stool in the colon, consistent with constipation. APPENDIX: Appendix not identified, but there are no findings to suggest appendicitis. PERITONEUM: No free fluid. No free air. LYMPH NODES: No lymphadenopathy is evident. REPRODUCTIVE: Unremarkable as visualized. VASCULATURE: No evidence of abdominal aortic aneurysm. BONES: No aggressive appearing osseous lesion. No acute osseous pathology evident. IMPRESSION: 1. Distended gallbladder. No calcified gallstones. If indicated, further evaluation with ultrasound can be performed. 2. No bowel obstruction or inflammation. Large amount of stool in the colon, consistent with constipation. 3. Appendix not identified, but there are no findings to suggest appendicitis. 4. No renal or ureteral stones. No hydronephrosis. /Joiner DICTATED BY: LIZETTE AGUIAR MD DATE: 12/22/241606 ELECTRONICALLY SIGNED BY: LIZETTE AGUIAR MD DATE: 12/22/241606 ASSESSMENT: Urinary tract infection with possible left-sided pyelonephritis Acute on chronic hyponatremia Subacute lower back pain with radicular features Prior history of hyponatremia PLAN: Labs, diagnostic, radiologic exams reviewed and interpreted by myself and supervising physician. We have reviewed external records in detail Pending cortisol level Require close monitoring of renal function and electrolytes Order CBC, CMP, uric acid and electrolytes in am Continue with antibiotics BiPAP as necessary, for respiratory distress Monitor blood pressure adjust medication doses as needed Avoid hypotensive episodes May use Dilaudid 0.5 mg IV every 6 hours as needed for severe pain Strict intake, output, and daily weight should be monitored Will continue to monitor renal function, anemia, electrolytes Treatment plan discussed with patient Questions were answered We have discussed with the other team physicians in detail about the care plan We will continue to monitor the patient closely ATTESTATION BY PHYSICIAN I have seen and examined the patient. I reviewed the documentation, medical decision making, and treatment plan as noted by the mid-level provider above. I agree with the findings and plan of care. RADHA BANGURA MD, [facility] Dec 23, 2024 13:16
--- NOTE | 2024-12-23 15:24 | NUR ---
DCP:HOME Pt currently lives with sister and children. Pt does not have any DME, home health, or provider services. Pt states that she is able to complete all ADLs independently. PCP is Dr. Alexey Mcclain and uses [facility] for any RX needs. At [place] pt will want to go home and family can assist with transportation. Addendum: 12/23/24 at 1526 by AMADO BRITO SS Amended: Links added.
[2024-12-24 00:02] VITALS: BP 120/72; PULSE 69; RESP 18; TEMP 98.1
[2024-12-24 03:37] LABS: IMMATURE GRANULOCYTE ABSOLUTE 0.02 K/uL (0-1); NUCLEATED RED BLOOD CELLS 0.0 % (0.0-0.19); PLATELET COUNT (AUTO) 216 K/uL (130-400); RED BLOOD CELL COUNT(AUTO) 3.63 MIL/uL (4.00-5.50); RED CELL DISTRIBUTION WIDTH 13.3 % (11.0-15.5); WHITE BLOOD COUNT (AUTO) 5.8 K/uL (4.8-10.8)
[2024-12-24 03:51] LABS: CREATININE 0.6 mg/dL (0.5-1.0); GLOMERULAR FILTR. RATE CALC 110.0 mL/min (>90); GLUCOSE,RANDOM 99.0 mg/dL (70-105); SODIUM SERUM 132.0 mmol/L (136-145); UREA NITROGEN, BLOOD 8.0 mg/dL (7-18)
[2024-12-24 04:14] VITALS: BP 106/64; PULSE 66; RESP 18; TEMP 98
[2024-12-24 07:35] VITALS: BP 103/57; PULSE 63; RESP 17; TEMP 98
[2024-12-24 08:20] VITALS: O2SAT 98
[2024-12-24 11:39] VITALS: BP 107/77; PULSE 78; RESP 17
--- NOTE | 2024-12-24 12:30 | NUR ---
BLADDER LINE ASSEMBLER REPORTED PATIENT C/O NOT BEING ABLE TO URINATE FOR "A WHILE". ASSESSED PATIENT AND STATED LAST VOID WAS PRIOR TO RECEIVING MORPHINE DOSE THIS AM, STATES SHE HASN'T BEEN ABLE TO URINATE OFTEN SINCE THEN, HOWEVER DOES HAS VOIDED. DENIES ANY ABDOMINAL DISCOMFORT OR COMPLICATIONS AT THIS TIME. BLADDER SCANNED PATIENT AND OBTAINED 236ML. TOLERATED PROCEDURE WELL. DENIED ANY DISCOMFORT WHEN PRESSING ON BLADDER. WILL CONTINUE TO MONITOR.
--- NOTE | 2024-12-24 13:03 | HMCIMG ---
EXAM: MR Lumbar Spine Without Intravenous Contrast. CLINICAL HISTORY: Lifted a heavy bed one week ago. Severe low back pain radiating to the left leg. TECHNIQUE: Magnetic resonance images of the lumbar spine in multiple planes. CONTRAST: None. COMPARISON: None. FINDINGS: For this examination, spinal levels were labeled assuming five [id number], lumbar-type vertebrae, with the inferior labeled L5. Normal lordotic curvature. Disc desiccation with mild reduction in the disc height at the L5-S1 level. Mild grade acute compression fracture of the L1 vertebral body along the lower end plate with associated bone marrow edema. Normal rest of the vertebral body and disc heights. Normal rest of the marrow signal of the vertebrae. Conus medullaris terminates at the T12-L1 level. No abnormal epidural masses. The surrounding soft tissues are unremarkable. Incidental cholelithiasis without evidence for cholecystitis. Individual spinal levels are described as follows: T12-L1: No disc bulge or herniation. No neural foraminal, lateral recess, or spinal canal stenosis. L1-L2: No disc bulge or herniation. No neural foraminal, lateral recess, or spinal canal stenosis. L2-L3: No disc bulge or herniation. No neural foraminal, lateral recess, or spinal canal stenosis. L3-L4: No disc bulge or herniation. No neural foraminal, lateral recess, or spinal canal stenosis. L4-L5: No disc bulge or herniation. No neural foraminal, lateral recess, or spinal canal stenosis. L5-S1: 3 mm circumferential disc bulge with old posterior and right ear. Mild bilateral lateral recess and neural foraminal narrowing. Mild spinal canal stenosis. IMPRESSION: Mild grade acute compression fracture along the lower endplate of the L1 vertebral body. Degenerative disc disease at the L5-S1 level. /[place]
--- NOTE | 2024-12-24 13:04 | HMCIMG ---
EXAM: MR Thoracic Spine Without Intravenous Contrast. CLINICAL HISTORY: Lifted heavy bed one week ago. Severe low back pain radiating to left leg. TECHNIQUE: Magnetic resonance images of the thoracic spine in multiple planes. CONTRAST: None. COMPARISON: None. FINDINGS: The cervicothoracic and thoracolumbar junction are intact. Mild grade acute compression fracture of the L1 vertebral body along the lower end plate with associated bone marrow edema. Focal vertebral body hemangioma at the T10 and L1 levels. Normal thoracic curvature. Normal rest of the vertebral body and disc heights. Normal marrow signal of the rest of the vertebrae. The thoracic cord is in an anatomic location without abnormal signals. No abnormal extra-axial masses are present. The prevertebral and paravertebral soft tissues are within normal limits. Incidental T2 bright right thyroid lobe nodule that may be further characterized with ultrasound imaging. [id number] findings are as follows: C7-T1: No disc bulge or herniation. No neural foraminal, lateral recess, or spinal canal stenosis. T1-T2: No disc bulge or herniation. No neural foraminal, lateral recess, or spinal canal stenosis. T2-T3: No disc bulge or herniation. No neural foraminal, lateral recess, or spinal canal stenosis. T3-T4: No disc bulge or herniation. No neural foraminal, lateral recess, or spinal canal stenosis. T4-T5: No disc bulge or herniation. No neural foraminal, lateral recess, or spinal canal stenosis. T5-T6: No disc bulge or herniation. No neural foraminal, lateral recess, or spinal canal stenosis. T6-T7: No disc bulge or herniation. No neural foraminal, lateral recess, or spinal canal stenosis. T7-T8: No disc bulge or herniation. No neural foraminal, lateral recess, or spinal canal stenosis. T8-T9: No disc bulge or herniation. No neural foraminal, lateral recess, or spinal canal stenosis. T9-T10: No disc bulge or herniation. No neural foraminal, lateral recess, or spinal canal stenosis. T10-T11: No disc bulge or herniation. No neural foraminal, lateral recess, or spinal canal stenosis. T11-T12: No disc bulge or herniation. No neural foraminal, lateral recess, or spinal canal stenosis. T12-L1: No disc bulge or herniation. No neural foraminal, lateral recess, or spinal canal stenosis. IMPRESSION: Mild grade acute compression fracture of the L1 vertebral body along the lower endplate. No acute fracture in the thoracic spine. No significant disc herniation. /[place]
[2024-12-24 14:54] VITALS: BP 138/79; PULSE 61; RESP 18; TEMP 98.1
--- NOTE | 2024-12-24 15:40 | NUR ---
MRI RESULTS MRI RESULTS REPORTED TO KATHI, JOSH ADAMS. YURY RECONSULT TELE-NEURO FOR RECOMMENDATIONS BASED ON RESULTS AND DISCHARGE PLANNING. NO FURTHER ORDERS GIVEN. ORDERS CARRIED OUT
--- NOTE | 2024-12-24 17:06 | NUR ---
MRI RESULTS PLAN OF CARE EXPLAINED TO PATIENT AND DAUGHTER AT BEDSIDE. INFORMED OF PRIMARY'S RECOMMENDATIONS FOR TELE NEURO FOR DISCHARGE PLANNING AND OR ANY FURTHER NEUROSURGERY RECOMMENDATIONS, PER BRYAN'S RECOMMENDATIONS. PATIENT AND DAUGHTER REFUSED NEUROSURGERY AT THIS TIME. STATED WILL FOLLOW UP WITH PRIMARY FOR REFERRAL TO SPECIALIST OUTPATIENT. PATIENT DENIES ANY FURTHER BACK PAIN. NO S/S OF DISTRESS NOTED. PATIENT VOICED WAS ABLE TO VOID AND HAVE BM TODAY. REQUESTING FOR DISCHARGE. NOTIFIED MRS. ADAMS. NO ORDERS GIVEN AT THIS TIME. WILL CONTINUE TO MONITOR UNTIL FURTHER ORDERS GIVEN.
[2024-12-24] MEDS ORDERED: LEVO-70 PO (17:11)
[2024-12-24] MEDS ORDERED: FAMO20TA8 PO (17:11)
--- NOTE | 2024-12-24 17:21 | DS ---
Discharge Summary Hospital Course Summary: DATE OF ADMISSION:[12/22/24] DATE OF DISCHARGE:[12/24/24 DISPOSITION:[Home] CONDITION:[Medicine stable] CONSULTANTS:[Nephrology, neurologist] FOLLOW UP APPOINTMENTS:[PCP 2 to 3 days. Muck Operator as needed. Neurosurgeon for abnormal MRI results within 1 to 2 weeks.] PROCEDURES:[None] IMAGING: report attached to summary MICROBIOLOGY: report attached to summary ACTIVITY:[Independent] HOME MEDICATIONS: see [facility] NEW MEDICATIONS:[Levofloxacin 500 mg p.o. daily x7 days, famotidine 20 mg p.o. b.i.d.] EMERGENCY INSTRUCTIONS: The patient was instructed to present to the nearest Emergency departmentr or call 911 once their symptoms will return or worsen Dress Cap Maker(s): Patient is 49 years old female who was admitted to emergency department for complaint of acute low back pain, UTI and hyponatremia. At 1st patient was started on IV Rocephin. Final urine culture came back positive for E coli. Patient also underwent MRI lumbar which showed mild grade acute compression fracture along the lower end plate of the L4 vertebral body. Degenerative disc disease at L5-S1 level. Patient also underwent thoracic spine which showed mild grade acute compression fracture of L1 vertebral body along the lower end-plate. No acute fracture in thoracic spine no significant disc herniation. All the results were given to the patient she would like to follow up outpatient with neurosurgeon regarding above-stated acute compression fracture. Patient denies any shortness of breath, chest pain, nausea, vomiting, any lower back pain. Sodium at 1:32 a.m.. Patient is requesting to be discharged home she will follow up outpatient with the PCP in 2 to 3 days. Patient was also evaluated by i&c technician due to DOROTHEA. Today creatinine BUN GFR within normal limits. She will also follow up with neurosurgeon within 1 to 2 weeks. Prior discharge patient will receive 2 g of sodium. Procedure(s): REVIEW OF SYSTEMS CONSTITUTIONAL: Denies fevers, chills, or night sweats. No unintentional weight loss reported. NEUROLOGICAL: Denies headache, amaurosis fugax, motor weakness, sensory deficit, vertigo/spinning sensation, gait abnormalities, or tremors. ENT: No hearing loss, otalgia, otorrhea, rhinitis, rhinorrhea, hoarseness, or sore throat. CARDIOVASCULAR: Denies any exertional angina, dyspnea on exertion, orthopnea, paroxysmal nocturnal dyspnea, palpitations, life-threatening arrhythmias, claudication. PULMONARY: Denies any shortness of breath, cough, phlegm/sputum, hemoptysis, pleuritic chest pain. SLEEP: Denies morning headaches, daytime somnolence or napping. Denies difficulty falling asleep, staying asleep, waking from sleep. Denies knowledge of snoring. GASTROINTESTINAL: Denies any type of dysphagia to either liquids or solids. Denies nausea, vomiting, pyrosis, early satiety, abdominal pain, diarrhea, constipation, or changes in stool consistency or caliber. Denies coffee-ground emesis, hematemesis, hematochezia, or melanotic stools. GENITOURINARY: Denies frequency, urgency, nocturia, hematuria or incontinence (Storage/Irritative symptoms.) Low urinary stream, straining to void, urinary intermittency or hesitancy, splitting of the voiding stream, terminal dribbling. ENDOCRINOLOGIC: Denies polyuria, polydipsia, polyphagia or heat/cold intolerances. HEMATOLOGIC: Denies thrombophilia/previous clots, or coagulopathy/bleeding disorders. ONCOLOGIC: Denies personal history of malignancy. DERMATOLOGIC: Denies rashes or pruritus. PSYCHIATRIC: Denies any suicidal or homicidal ideation. Denies hallucinations. PHYSICAL EXAM GENERAL APPEARANCE: The patient is awake, alert, and oriented, in no acute cardiopulmonary distress. NEUROLOGICAL: Cranial nerves II-XII grossly intact. Motor is 5/5 in bilateral upper and lower extremities proximal to distal. No sensory deficits. HEENT: Face is symmetric. Pupils are equal and reactive. Extraocular movements are intact. NECK: Supple. No JVD. No thyromegaly. No submental, submandibular, pre- /postauricular, occipital or supraclavicular lymphadenopathy. CHEST: Normal chest expansion. No Telemetry. LUNGS: Absence of any rales, rhonchi or any wheezing. CARDIOVASCULAR: Regular. S1 and S2 normal. No appreciable rubs, murmurs or gallops. ABDOMEN: Soft, nontender, and nondistended. There is no rebound, voluntary guarding, or rigidity. : Deferred. No Gaming. EXTREMITIES: Non-edematous and not cyanotic. No clubbing. Good capillary refill. SKIN: No skin breakdown. Assessment/Plan: ASSESSMENT: Urinary tract infection with possible left-sided pyelonephritis, POA E coli in the urine Acute on chronic hyponatremia, POA Acute compression fracture as per MRI Subacute lower back pain with radicular features, POA Prior history of hyponatremia, POA Home Medications: Reported Medications Carbamazepine (Carbamazepine) 200 Mg Tablet, 1.5 TAB PO BID for 30 Days, #60 TAB 0 Refills 12/22/24 Time spent arranging discharge: 31-60 minutes ATTESTATION BY PHYSICIAN I have seen and examined the patient. I reviewed the documentation, medical decision making, and treatment plan as noted by the mid-level provider above. I agree with the findings and plan of care. Karen Kulkarni MD, [facility] GERONTOLOGY AIDE Dec 24, 2024 17:21
[2024-12-24] MEDS: SODIUM CHLORIDE 1,000 MG TAB PO ONE (17:22)
--- NOTE | 2024-12-24 17:32 | NUR ---
DISCHARGE DISCHARGE ORDERS FOR PATIENT TO BE DISCHARGED HOME OBTAINED. DISCHARGE INSTRUCTIONS AND DOCUMENTATION GIVEN TO PATIENT AT BEDSIDE. VOICED UNDERSTANDING. IV DISCONTINUED, CATHETER INTACT, NO S/S OF INFECTION NOTED TO AREA. PATIENT TOLERATED WELL. BANDS REMOVED PRIOR TO DISCHARGE. PATIENT PENDING DAUGHTER FOR PICKUP TRANSPORTATION.
--- NOTE | 2024-12-24 20:12 | PN ---
NEPHROLOGY NOTE SUBJECTIVE: The patient is a 49-year-old who complained with low back pain, UTI and hyponatremia. The patient has been on antibiotic. The patient has no fever, chills or rigors. The patient has compression fractures of the lumbar spine has been detected of the L1 vertebra. The patient is to follow up with Neurosurgery. No fevers, chills or rigors. The patient has UTI. No other associated findings. No other aggravating or relieving factors. The patient has hyponatremia, may be related to Tegretol use before. PHYSICAL EXAMINATION: GENERAL: Pale, no other distress or deformities, lying in bed. VITAL SIGNS: Blood pressure is 103/57, pulse 63, respiratory rate is 17. HEENT: Head is atraumatic, normocephalic. Pupils are round and reactive. Sclerae are anicteric. Conjunctivae not pale. Oral mucosa is not dry. NECK: Without masses or bruits. Thyroid is palpable. Neck has no bruits. CHEST: Equal thoracic percussion note being resonant in all areas. CARDIAC: Regular rhythm. No rub. No S3, S4. No parasternal heave. LABORATORY DATA: We have reviewed labs studies, showed hemoglobin of 8.4, sodium has been low 132. Old records reviewed. PROBLEMS: Hyponatremia, which may be related to Tegretol use before, UTI, underlying compression fracture. PLAN: As the patient takes Tegretol, it can be slowly weaned off if hyponatremia persistent. The patient is to follow up with the Neurologist for that. Continue monitoring of electrolytes, antibiotic for UTI. The patient was counseled on mild fluid restriction and intake, output and weight to be monitored. Nonsteroidal drugs to be avoided. Doses or medicine to be adjusted. I will continue to monitor. I saw the patient several times today. I thank you for this patient. TID: [id number] RECEIPT: [id number]
== END 2024-12-24 18:01 | disposition home or self-care (01) | DRG 690 ==
LOC: EDH 13:44 → EDHIP 17:25 → 4AH 22:27
PROVIDERS: ADMIT Internal Medicine; ATTEND Internal Medicine
DX: N12 Tubulo-interstitial nephritis, not specified as acute or chronic (principal); E87.1 Hypo-osmolality and hyponatremia; S32.018A Other fracture of first lumbar vertebra, initial encounter for closed fracture; N17.9 Acute kidney failure, unspecified; M54.50 Low back pain, unspecified; D64.9 Anemia, unspecified; K59.00 Constipation, unspecified; K82.8 Other specified diseases of gallbladder; X50.0XXA Overexertion from strenuous movement or load, initial encounter; Y93.89 Activity, other specified; Y92.89 Other specified places as the place of occurrence of the external cause; Y99.8 Other external cause status; Z98.891 History of uterine scar from previous surgery; Z79.899 Other long term (current) drug therapy; N39.0 Urinary tract infection, site not specified
CPT/HCPCS: 36415; 72146; 72148; 74176; 76705; 80048; 80051; 80053; 80076; 81001; 81025; 82533; 82570; 83735; 83930; 83935; 84145; 84443; 84540; 84550; 85025; 85610; 85730; 86140; 87086; 87186; 96374; 96375; 99285; G0378; J0696; J1885; J2270; J2405; J7030